=== PATIENT | female | born 1960 | race Caucasian/White ===

== ENCOUNTER 2022-11-25 14:32 | Inpatient (IN) | payer OTHER ==
[2022-11-25 15:24] LABS: #Monocytes 0.5 thou/uL (0.11-0.59); #Neutrophils 5.2 thou/uL (1.40-6.50); %Basophils 0.3 % (0.0-1.0); %Lymphocytes 11.6 % (21.0-51.0); %Monocytes 7.9 % (0.0-10.0); %Neutrophils 79.4 % (42.0-75.0); Hematocrit 42.9 % (36.0-47.0); Hemoglobin 13.9 g/dL (12.0-16.0); Mean Corpuscular HGB CONC 32.4 g/dL (32.0-36.0); Mean Corpuscular Hemoglobin 28.3 pg (27.0-31.0); Mean Corpuscular Volume 87.2 fl (78.0-98.0); Mean Platelet Volume 9.4 fL (7.4-10.4); Platelet Count 343 10x3/uL (130-400); RBC Distribution Width 15.6 % (11.5-14.5); Red Blood Cell (RBC) Count 4.92 mill/uL (4.20-5.40); White Blood Cell (WBC) Count 6.6 10x3/uL (4.8-10.8)
[2022-11-25 15:27] LABS: Base Excess -16.6 mEq/L (-2.0 to +3.0); Calcium, Ionized (venous) 1.18 mmol/L (1.16-1.32); Chloride (VBG) 103 mmol/L (98-106); Hematocrit-VBG 44 % (36.0-47.0); Hemoglobin (Hb) 14.9 g/dL (11.7-16.0); Potassium (VBG) 5.08 mmol/L (3.70-5.30); Sodium 138.7 mmol/L (133-146)
[2022-11-25 15:31] LABS: pH (venous) 7.179 (7.32-7.43)
[2022-11-25 15:32] LABS: Actual Bicarbonate (HCO3v) 10.2 mEq/L (22-28)
[2022-11-25 15:43] LABS: Phosphorus 3.7 mg/dL (2.3-4.7)
[2022-11-25 15:46] LABS: Troponin I Less than 0.010 ng/mL (< 0.028)
[2022-11-25 15:48] LABS: ALT (SGPT) 22 U/L (8-55); AST (SGOT) 18 U/L (5-34); Albumin 3.7 g/dL (3.4-4.8); Alkaline Phosphatase 104 U/L (40-110); Anion Gap 28 mmol/L (10-20); BUN (Urea Nitrogen) 32 mg/dL (9.8-20.1); Bilirubin, Total 0.8 mg/dL (0.2-1.2); Calc. Creatinine Clearance 0 mL/min (70-130); Carbon Dioxide 10 mmol/L (23-31); Chloride 103 mmol/L (98-107); Estimated GFR 31; Globulin 3.4 g/dL (2.4-3.5); Magnesium 2.2 mg/dL (1.6-2.6); Potassium 5.4 mmol/L (3.5-5.1); Protein, Total 7.1 g/dL (5.8-8.1); Sodium 136 mmol/L (136-145)
[2022-11-25 15:53] LABS: Glucose 596 mg/dL (80-115)
[2022-11-25 16:02] LABS: Bacteria/HPF 4+ HPF (None Seen); Bilirubin Negative (Negative); Blood, Urine Trace (Negative); CAUTI Indications for Culture Dysuria,urgency,freq; Clarity Clear (Clear); Glucose, Urine (Dipstick) Greater than 1000 mg/dL (Negative); Ketone, Urine Greater than 150 mg/dL (Negative); Leukocyte Negative Leu/uL (Negative); Nitrite Negative (Negative); Protein, Urine (Dipstick) 10 mg/dL (Neg-Trace); RBC/HPF 0-3 HPF (0-3); Specific Gravity, Urine 1.023 (1.002-1.036); Squamous Epithelial 0-3 HPF (0-3); Urobilinogen Normal mg/dL (Less than 2); WBC/HPF 0-3 HPF (0-3)
[2022-11-25 16:04] LABS: Urine Culture Reflex No No
[2022-11-25] MEDS ORDERED: Electrolyte Replacement Protocol 1 EACH IVPB ONE (16:16)
[2022-11-25] MEDS ORDERED: Dextrose 5 %-0.45 % NaCl 1,000 ML IV PRN (16:16)
[2022-11-25] MEDS ORDERED: D5 1/2 NS w/20 mEq KCL 1,000 ML IV PRN (16:16)
[2022-11-25] MEDS ORDERED: Sodium Chloride 0.9% 1,000 ML IV PRN ×3 (16:16)
[2022-11-25] MEDS ORDERED: NS 0.9% w/ 20 MEQ KCL 1,000 ML IV PRN (16:16)
[2022-11-25] MEDS ORDERED: Dextrose 50% Abboject 50 ML SYRINGE SLOW IVP PRN (16:16)
[2022-11-25] MEDS ORDERED: Insulin Regular 300 UNITS/3 ML VIAL ONE (16:19)
[2022-11-25] MEDS ORDERED: INSULIN REGULAR IN 0.9 % NACL 100 UNITS/100 ML BAG ONE (16:19)
[2022-11-25] MEDS ORDERED: Sodium Bicarb 50 MEQ/50 ML VIAL IVP SCH (16:30)
[2022-11-25] MEDS ORDERED: HUMULIN R 100 UNITS in Sodium Chloride 0.9% 100 ML IVPB SCH (16:30)
[2022-11-25] MEDS ORDERED: cefTRIAXone (ROCEPHIN) 1 GM VIAL ONE (16:57)
[2022-11-25 17:39] LABS: Anion Gap 26 mmol/L (10-20); BUN (Urea Nitrogen) 31 mg/dL (9.8-20.1); Calc. Creatinine Clearance 0 mL/min (70-130); Calcium 9.4 mg/dL (7.8-10.44); Chloride 108 mmol/L (98-107); Estimated GFR 31; Potassium 4.3 mmol/L (3.5-5.1); Sodium 138 mmol/L (136-145)
[2022-11-25 17:55] LABS: Carbon Dioxide 8 mmol/L (23-31); Glucose 486 mg/dL (80-115)
[2022-11-25 18:54] VITALS: BMI 34.9
[2022-11-25 20:46] LABS: Base Excess -10.5 mEq/L (-2.0 to +3.0); Calcium, Ionized (venous) 1.05 mmol/L (1.16-1.32); Chloride (VBG) 109 mmol/L (98-106); Hematocrit-VBG 42 % (36.0-47.0); Hemoglobin (Hb) 14.3 g/dL (11.7-16.0); Potassium (VBG) 4.07 mmol/L (3.70-5.30); Sodium 144.9 mmol/L (133-146); pH (venous) 7.334 (7.32-7.43)
[2022-11-25 21:00] LABS: Hemoglobin A1c 9.7 % (4.0-6.0)
[2022-11-25 21:10] LABS: Anion Gap 22 mmol/L (10-20); BUN (Urea Nitrogen) 29 mg/dL (9.8-20.1); Calc. Creatinine Clearance 62 mL/min (70-130); Carbon Dioxide 11 mmol/L (23-31); Chloride 112 mmol/L (98-107); Estimated GFR 40; Glucose 254 mg/dL (80-115); Potassium 4.1 mmol/L (3.5-5.1); Sodium 141 mmol/L (136-145)
[2022-11-25 21:30] LABS: CK (CPK) 187 U/L (29-168); Magnesium 1.9 mg/dL (1.6-2.6)
[2022-11-26 01:24] LABS: Anion Gap 19 mmol/L (10-20); BUN (Urea Nitrogen) 24 mg/dL (9.8-20.1); Calc. Creatinine Clearance 74 mL/min (70-130); Calcium 8.5 mg/dL (7.8-10.44); Carbon Dioxide 16 mmol/L (23-31); Chloride 111 mmol/L (98-107); Estimated GFR 49; Glucose 263 mg/dL (80-115); Sodium 142 mmol/L (136-145)
[2022-11-26 07:27] LABS: Anion Gap 16 mmol/L (10-20); BUN (Urea Nitrogen) 19 mg/dL (9.8-20.1); Calc. Creatinine Clearance 92 mL/min (70-130); Calcium 8.5 mg/dL (7.8-10.44); Carbon Dioxide 18 mmol/L (23-31); Chloride 111 mmol/L (98-107); Estimated GFR 64; Glucose 199 mg/dL (80-115); Potassium 3.9 mmol/L (3.5-5.1); Sodium 141 mmol/L (136-145)
[2022-11-26] MEDS: Pantoprazole 40 MG VIAL IVP SCH (08:49)
[2022-11-26] MEDS ORDERED: Glucagon 1 MG/ML KIT IM PRN (09:22)
[2022-11-26] MEDS ORDERED: Dextrose 5% in Water 1,000 ML IV PRN (09:22)
[2022-11-26] MEDS ORDERED: Dextrose 50% Abboject 50 ML SYRINGE SLOW IVP PRN (09:22)
[2022-11-26] MEDS: HumaLOG 300 UNITS/3 ML VIAL SC PRN ×2 (12:05→17:01)
[2022-11-26] MEDS ORDERED: Insulin Glargine 30 UNITS/0.3 ML VIAL SC SCH (12:15)
[2022-11-26] MEDS ORDERED: Pioglitazone HCl 45 MG TAB PO SCH (12:15)
[2022-11-26] MEDS: Sodium Bicarbonate Tab 325 MG TAB PO SCH (20:51)
[2022-11-26] MEDS: Insulin Glargine 30 UNITS/0.3 ML VIAL SC SCH (20:51)
[2022-11-27] MEDS ORDERED: Acetaminophen 325 MG TAB PO PRN (05:30)
[2022-11-27] MEDS ORDERED: Acetaminophen 325 MG TAB PO SCH (05:30)
[2022-11-27] MEDS: HumaLOG 300 UNITS/3 ML VIAL SC PRN ×2 (05:43→11:59)
[2022-11-27 06:16] LABS: #Monocytes 0.4 thou/uL (0.11-0.59); #Neutrophils 2.8 thou/uL (1.40-6.50); %Basophils 0.5 % (0.0-1.0); %Eosinophils 0.2 % (0.0-10.0); %Lymphocytes 21.9 % (21.0-51.0); %Monocytes 9.7 % (0.0-10.0); %Neutrophils 66.7 % (42.0-75.0); Hematocrit 34.6 % (36.0-47.0); Hemoglobin 11.9 g/dL (12.0-16.0); Mean Corpuscular HGB CONC 34.4 g/dL (32.0-36.0); Mean Corpuscular Volume 84.2 fl (78.0-98.0); Mean Platelet Volume 9.1 fL (7.4-10.4); Platelet Count 260 10x3/uL (130-400); RBC Distribution Width 15.3 % (11.5-14.5); Red Blood Cell (RBC) Count 4.11 mill/uL (4.20-5.40); White Blood Cell (WBC) Count 4.2 10x3/uL (4.8-10.8)
[2022-11-27 06:37] LABS: Anion Gap 11 mmol/L (10-20); BUN (Urea Nitrogen) 11 mg/dL (9.8-20.1); Calc. Creatinine Clearance 106 mL/min (70-130); Calcium 8.5 mg/dL (7.8-10.44); Carbon Dioxide 27 mmol/L (23-31); Chloride 104 mmol/L (98-107); Estimated GFR 76; Glucose 203 mg/dL (80-115); Potassium 3.2 mmol/L (3.5-5.1); Sodium 139 mmol/L (136-145)
[2022-11-27] MEDS: Sodium Bicarbonate Tab 325 MG TAB PO SCH (08:40)
[2022-11-27] MEDS: Insulin Glargine 30 UNITS/0.3 ML VIAL SC SCH ×2 (08:40→20:17)
[2022-11-27] MEDS: Pantoprazole 40 MG VIAL IVP SCH (08:40)
[2022-11-27] MEDS ORDERED: Potassium Chloride 20 MEQ TAB PO SCH (09:00)
[2022-11-27] MEDS ORDERED: Pioglitazone HCl 45 MG TAB PO SCH (09:00)
[2022-11-27] MEDS: Lisinopril 2.5 MG TAB PO SCH (11:58)
[2022-11-27] MEDS ORDERED: Atorvastatin Calcium 20 MG TAB PO SCH (21:00)
[2022-11-28 07:32] LABS: Anion Gap 9 mmol/L (10-20); BUN (Urea Nitrogen) 8 mg/dL (9.8-20.1); Calc. Creatinine Clearance 125 mL/min (70-130); Calcium 8.7 mg/dL (7.8-10.44); Carbon Dioxide 29 mmol/L (23-31); Chloride 105 mmol/L (98-107); Estimated GFR 93; Glucose 69 mg/dL (80-115); Sodium 140 mmol/L (136-145)
[2022-11-28] MEDS: Lisinopril 2.5 MG TAB PO SCH (08:47)
[2022-11-28] MEDS ORDERED: Insulin Glargine 30 UNITS/0.3 ML VIAL SC SCH (09:00)
[2022-11-28] MEDS ORDERED: Potassium Chloride 20 MEQ in Premix Bag 1 BAG IVPB SCH (10:15)
[2022-11-28] MEDS ORDERED: Dextrose 50% Abboject 50 ML SYRINGE SLOW IVP SCH (10:30)
[2022-11-28 11:22] LABS: Actual Bicarbonate (HCO3v) 13.6 mEq/L (22-28)
[2022-11-28 16:26] VITALS: BP 118/76; TEMP 98.5
== END 2022-11-28 18:39 | DRG 638 ==
LOC: ERS 14:32 → CCU 16:20 → T4-A 11-26 16:28
PROVIDERS: ADMIT Hospitalist; ATTEND Emergency Medicine
PROC: 4A133R1 Monitoring of Arterial Saturation, Peripheral, Percutaneous Approach (ICD-10-PCS; principal; 2022-11-25)
DX: E11.10 Type 2 diabetes mellitus with ketoacidosis without coma (principal); I69.354 Hemiplegia and hemiparesis following cerebral infarction affecting left non-dominant side; N17.9 Acute kidney failure, unspecified; E78.5 Hyperlipidemia, unspecified; K21.9 Gastro-esophageal reflux disease without esophagitis; Z88.0 Allergy status to penicillin; Z88.5 Allergy status to narcotic agent; Z83.3 Family history of diabetes mellitus; I10 Essential (primary) hypertension; Z79.4 Long term (current) use of insulin
CPT/HCPCS: 36415; 36416; 70450; 71045; 80048; 80053; 81001; 82010; 82550; 82805; 83036; 83605; 83735; 84100; 84484; 85025; 87040; 87086; 93005; 93923; 96365; 96368; C9113; J0696; J1815; J3480